=== PATIENT | female | born 1995 | race African-American/Black ===

== ENCOUNTER 2019-12-27 11:34 | Emergency (ER) | payer MEDICAID, OTHER ==
[~2019-12-27] VITALS: Ht 162.6 cm; Wt 81.6 kg
[2019-12-27 11:44] VITALS: BP 165/77
== END 2019-12-27 13:39 | disposition home or self-care (01) ==
LOC: ER 11:34
DX: J03.90 Acute tonsillitis, unspecified (principal)
CPT/HCPCS: 72050

== ENCOUNTER 2021-02-07 10:02 | Emergency (ER) | payer MEDICAID ==
[~2021-02-07] VITALS: Ht 160 cm; Wt 78.5 kg
[2021-02-07] MEDS ORDERED: PROM1SOL4 PO (12:39)
[2021-02-07] MEDS ORDERED: AZIT250T PO (12:39)
[2021-02-07 12:44] VITALS: BP 124/83
== END 2021-02-07 13:10 | disposition home or self-care (01) ==
LOC: ER 10:02
DX: U07.1 COVID-19 (principal); R06.02 Shortness of breath
CPT/HCPCS: 36415; 71046; 87426